=== PATIENT | female | born 1990 | race Caucasian/White ===

== ENCOUNTER 2016-11-14 12:22 | Observation (INO) | payer OTHER ==
[2016-11-14] VITALS (17 sets, daily range): BP systolic 90–145; BP diastolic 45–96; PULSE 61–90; RESP 14–25; O2SAT 95–100
[~2016-11-14] VITALS: Ht 162.6 cm; Wt 82.0 kg
[~2016-11-14 12:22] MED LIST: DOCU-41 PO; IBUP800T28 PO; OXYC1TAB24 PO; PREN1TAB25 PO
--- NOTE | 2016-11-14 13:14 | ED.REPORT ---
HPI-Abd Pain F Under 40 Date of Service Nov 14, 2016 ED Provider: Dr. Hernández A 26 year old female with a history of bladder infections and two C-sections presents to the ED complaining of severe diffuse abdominal pain onset today at 0300. She experienced mild abdominal pain yesterday and was awoken by severe abdominal pain today, subsequently experiencing vomiting, diarrhea, and diaphoresis. She reports taking Ibuprofen at onset and was then able to sleep. She awoke this morning with the pain and took Midol with no relief. Pain has increased since onset. Associated symptoms include lower back pain. She denies any dysuria, fever, or and reports that the pain does not feel like past bladder infection. The patient does not smoke, is an occasional social drinker, and denies taking any prescription medications. She reports practicing safe intercourse with partner. She does not have a regular doctor. Nursing Notes Stated Complaint: ABDOMINAL PAIN Chief Complaint: Female Abdominal Pain Nursing Notes Reviewed: Yes Allergies: Coded Allergies: No Known Allergies (Verified Allergy, Unknown, 11/14/16) No Active Prescriptions or Reported Meds General Time Seen by MD: 13:13 Chief Complaint Abdominal pain Hx Obtained From: Patient Arrived By: Walk-in Sudden in Onset?: No Onset Occurred: 9 - 12 hours ago Symptom Duration: Since onset Location: : Diffuse Recent Healthcare: No recent doctor visit Similar Sx Previous: No Past Medical History Past Medical History bladder infection. neurologic disorders. No PCP. Reports: Asthma (Exercised induced childhood asthma.) Past Surgical History Reports: (two C-sections in past.) Smoking History Former Smoker Social History Alcohol Use: "Social" (occasional) Ambulatory Status Independent Review of Systems Review of Systems Note: Lower back pain. Constitutional: Denies: Fever GI: Reports: Abdominal pain, Diarrhea, Vomiting Female: Denies: Dysuria, Complete sys rev & neg: except as marked. Skin: Reports Diaphoresis Physical Exam Initial Vital Signs Vital Signs (First) Date Time Temp Pulse Resp B/P Pulse Ox O2 Delivery O2 Flow Rate FiO2 11/14/16 12:35 36.2 83 18 145/96 100 Initial VS: Reviewed General/Constitutional: Awake, Alert Respiratory / Chest: Atraumatic, Breath sounds NL, Breath sounds = bilat, No respiratory distress, No rales, No rhonchi, No wheezing Cardiovascular: Heart rate NL, Regular rhythm, Heart sounds NL, No gallop, No murmurs, No rubs Abdomen: Atraumatic Tenderness/Guarding/Rebound: Positive: Tender LLQ... (Moderate), Tender RLQ... (Moderate) Lower abdominal tenderness, right and left equal. Guarding present. No upper abdominal tenderness. Back: Atraumatic, Full range of motion (with guarding, right and left equal), No CVA tenderness Head / Eyes: Atraumatic, Normocephalic, PERRL, EOMI ENT: Atraumatic, Airway patent, Mucous membranes moist Skin: Atraumatic, Color NL, No rash, Warm, Dry Neurologic: Oriented X3, Speech NL, No motor deficits, No sensory deficits Neck: Atraumatic, Full range of motion Upper Extremity / MS: Atraumatic, Full range of motion Lower Extremity / Pelvis / MS: Atraumatic, Full range of motion Psychiatric: Affect NL, Mood NL Interpretation & Diagnostics Lab Results Interpretation Result Diagram: 11/14/16 1210 11/14/16 1210 Test 11/14/16 11:51 11/14/16 12:10 Urine Color Yellow (YELLOW) Urine Appearance Hazy (CLEAR,HAZY) Urine pH 6.5 (5.0-8.0) Urine Specific [place] 1.020 (1.003-1.035) Urine Protein Negativemg/dL (NEG,TRACE) Urine Glucose (UA) Negativemg/dL (NEGATIVE) Urine Ketones Negativemg/dL (NEGATIVE) Urine Occult Blood Trace (NEGATIVE) Urine Nitrite Positive (NEGATIVE) Urine Bilirubin Negative (NEGATIVE) Urine Urobilinogen Normalmg/dL (NORMAL) Urine Leukocyte Esterase Negative (NEGATIVE) Urine RBC 3-10/hpf (0-2) Urine WBC 0-5/hpf (0-5) Urine Epithelial Cells Occasional/hpf (NONE-MOD) Urine Crystals None seen (NONE SEEN) Urine Bacteria Many/hpf (NONE-FEW) Urine Hyaline Casts None/lpf (NONE) Urine Granular Casts None seen (NONE SEEN) Urine Waxy Casts None seen (NONE SEEN) Urine Red Blood Cell Casts None seen (NONE SEEN) Urine White Blood Cell Casts None seen (NONE SEEN) Urine Mucus Present (None Seen) Urine Trichomonas None seen (NONE SEEN) Urine Yeast None (NONE SEEN) Urinalysis Comment None Urine Culture Reflexed Indicated Hold Urine Received (Received) White Blood Count 19.3th/mm3 (3.8-10.1) Red Blood Count 4.88mil/mm3 (3.90-5.20) Hemoglobin 13.3g/dL (12.0-15.6) Hematocrit 39.8% (35.0-46.0) Mean Corpuscular Volume 81.6fL (81-100) Mean Corpuscular Hemoglobin 27.3pg (27.0-35.0) Mean Corpuscular Hemoglobin Concent 33.4% (32.0-37.0) Red Cell Distribution Width 14.1% (12.3-15.4) Platelet Count 223bil/L (150-400) Neutrophils (%) (Auto) 82.1% (40-74) Lymphocytes (%) (Auto) 11.3% (14-46) Monocytes (%) (Auto) 5.9% (4-12) Eosinophils (%) (Auto) 0.2% (0-5) Basophils (%) (Auto) 0.2% (0-3) Sodium Level 138mEq/L (134-144) Potassium Level 4.0mEq/L (3.5-5.2) Chloride Level 103mEq/L (97-108) Carbon Dioxide Level 23mmol/L (18-29) Blood Urea Nitrogen 13mg/dL (6-20) Creatinine 0.70mg/dL (0.57-1.00) Estimat Glomerular Filtration Rate 146mL/min (>59) Glucose Level 109mg/dL (60-99) Calcium Level 9.4mg/dL (8.5-10.1) Magnesium Level 1.7mg/dL (1.6-2.6) Total Bilirubin 1.0mg/dL (0.0-1.2) Aspartate Amino Transf (AST/SGOT) 15U/L (0-50) Alanine Aminotransferase (ALT/SGPT) 14U/L (0-32) Alkaline Phosphatase 81U/L (25-150) Total Protein 7.4g/dL (6.4-8.4) Albumin 4.2g/dL (3.4-5.0) Lipase 15U/L (13-60) Hold Cool Top Tube Received (Received) General Lab Results Interp 1: Labs reviewed CT Abd / Pelvis Interpretation IMPRESSION: 1. Acute appendicitis. Small amount of associated free fluid in the pelvis, consistent with physiologic free fluid versus appendiceal rupture. Findings discussed with Dr. Hernández on 11.14.16 at 1518 hrs. 2. Bilateral L5-S1 pars interarticularis defects, associated with anterolisthesis of L5 on S1, and bilateral L5-S1 neuroforaminal stenoses. Dictated by: Reggie Alfaro M.D. on 11/14/2016 at 15:18 Approved by: Reggie Alfaro M.D. on 11/14/2016 at 15:21 Study type: Abdominal CT IV contrast Interpretation / Wet Read by: Interpret - Radiologist Re-Eval/Medical Decision Source of Hx: Old records Re-Evaluation/Progress : Time of Eval: 15:23 Re-Evaluation/Progress Note: Rechecked patient, explained diagnosis of appendicitis and treatment plan. Patient understands and agrees with the plan. All questions addressed. Consultation : Referral / Consult Name: Atif Pedro MD Consulted With: Surgeon Call Returned at: 15:30 Cookie Breaker: Will see patient, Agrees with eval, Agrees with plan, Accepts admit Counseled Regarding: Diagnosis, Lab results, Need for admission Discharge & Departure Primary Impression: Acute appendicitis Acute appendicitis type: with localized peritonitis Qualified Code: K35.3 - Acute appendicitis with localized peritonitis Disposition: ADMITTED TO HOSPITAL Discharge Condition All VS Reviewed: Yes Referrals: NOPCP (PCP) Scribe Attestation Portions of this note were transcribed by Tristian Wright and Gilda Charles. I, , personally performed the history, physical exam, and medical decision-making: I reviewed and confirmed the accuracy for the information in the transcribed note. Signed by: Tristian Wright and akil Eisenberg, 11/14/16 1740 Bernabe Hernández MD Nov 14, 2016 13:14 Tristian Wright Nov 14, 2016 13:21 Gilda Charles Nov 14, 2016 13:52 Gilda Charles Nov 14, 2016 13:52
[2016-11-14 13:20] LABS: BASOPHILS % (AUTO) 0.2 % (0-3); EOSINOPHILS % (AUTO) 0.2 % (0-5); MONOCYTES % (AUTO) 5.9 % (4-12); Mean Corpuscular Hemoglobin 27.3 pg (27.0-35.0); Mean Corpuscular Volume 81.6 fL (81-100); NEUTROPHILS % (AUTO) 82.1 % (40-74); Platelet Count 223 bil/L (150-400)
[2016-11-14] MEDS ORDERED: 0.9% Sodium Chloride 1,000 ML IV ONE (13:21)
[2016-11-14] MEDS ORDERED: Acetaminophen IV 1,000 MG in IV Premix 1 EACH IV ONE (13:25)
[2016-11-14] MEDS ORDERED: Ondansetron 2 mg/mL 2 mL Inj IVPUSH PRN ×3 (13:25→18:50)
[2016-11-14] MEDS ORDERED: MetoCLOpramide 5 mg/mL 2 mL Inj IVPUSH ONE (13:25)
[2016-11-14 13:39] LABS: Magnesium 1.7 mg/dL (1.6-2.6)
[2016-11-14 14:07] LABS: APPEARANCE,URINE HAZY (CLEAR,HAZY); COLOR,URINE YELLOW (YELLOW); OCCULT BLOOD,URINE TRACE (NEGATIVE); PH,URINE 6.5 (5.0-8.0)
[2016-11-14 14:08] LABS: UROBILINOGEN,URINE NORMAL (NORMAL)
[2016-11-14] MEDS: HYDROmorphone 1 mg/mL Inj IVPUSH PRN ×2 (14:23→16:17)
--- NOTE | 2016-11-14 15:22 | DRSVH ---
PROCEDURE: CT ABDOMEN AND PELVIS WITH CONTRAST ([id number]) INDICATIONS: Lower abdominal Pain TECHNIQUE: After the administration of intravenous contrast, 5 mm thick sections acquired from the diaphragm to the symphysis. 5 mm coronal and sagittal reformats were acquired. For radiation dose reduction, the following was used: automated exposure control, adjustment of mA and/or kV according to patient siz e. COMPARISON: None. FINDINGS: Image quality: Excellent. ABDOMEN: Lung bases: Lung bases are clear. Heart size is normal. Solid organs: Liver and spleen are normal in size and enhancement. Gallbladder is within normal worthy its. Biliary system is non dilated. Pancreas enhances normally. No adrenal nodules. Kidneys demon strate normal size and enhancement, without hydronephrosis. Peritoneum and bowel: Bowel loops demonstrate normal wall thickness and caliber. No free air. Small amount of free fluid in the pelvis. The appendix is distended and fluid-filled and demonstrates mode rate stranding fat stranding. Nodes and vessels: No retroperitoneal or mesenteric adenopathy by size criteria. Aorta and inferior vena cava are normal in size. Miscellaneous: No ventral hernias. PELVIS: Genitourinary: Bladder wall thickness is normal. Miscellaneous: No inguinal hernias or adenopathy. Bones: No suspicious bony lesions. Bilateral L5-S1 pars interarticularis defects, associated with gr radha 1 anterolisthesis of L5 on S1, and probable severe bilateral L5-S1 foraminal stenosis. No vertebr al body compression fractures. IMPRESSION: 1. Acute appendicitis. Small amount of associated free fluid in the pelvis, consistent with physiolog ic free fluid versus appendiceal rupture. Findings discussed with Dr. Hernández on 11.14.16 at 1518 h rs. 2. Bilateral L5-S1 pars interarticularis defects, associated with anterolisthesis of L5 on S1, and bi lateral L5-S1 neuroforaminal stenoses. Dictated by: Reggie Alfaro M.D. on 11/14/2016 at 15:18 Approved by: Reggie Alfaro M.D. on 11/14/2016 at 15:21
[2016-11-14] MEDS ORDERED: fentaNYL-PF 50 mCg/mL 2 mL Inj ONE (15:54)
[2016-11-14] MEDS ORDERED: Propofol 10,000 mCg/mL 20 mL Inj ONE (15:54)
[2016-11-14] MEDS ORDERED: Ondansetron 2 mg/mL 2 mL Inj ONE (15:54)
[2016-11-14] MEDS ORDERED: Rocuronium 10 mg/mL 5 mL Inj ONE (15:54)
[2016-11-14] MEDS ORDERED: Dexamethasone 4 mg/mL Inj ONE (15:54)
[2016-11-14] MEDS ORDERED: MetoCLOpramide 5 mg/mL 2 mL Inj ONE (15:54)
[2016-11-14] MEDS ORDERED: Lidocaine PF 1% 30 mL Inj ONE (15:54)
[2016-11-14] MEDS ORDERED: Succinylcholine Chloride 20 mg/mL 5 mL Inj ONE (15:54)
[2016-11-14] MEDS ORDERED: Lactated Ringer's 1,000 ML IV ONE (17:33)
[2016-11-14] MEDS: Ampicillin-Sulbactam Inj 3,000 MG in 0.9% Sodium Chloride 100 ML IV ONE ×2 (17:34→17:59)
--- NOTE | 2016-11-14 17:34 | PCM.HPANE ---
Patient Data Date of Service: Nov 14, 2016 Surgeon Admitting Provider:Atif Pedro MD Attending Provider:Atif Pedro MD Primary Care Physician:Nopcp Other Provider: Reason for Visit APPY Ht/WT & BMI Height (Feet): 5 Height (Inches): 4 Weight (Kilograms): 81.82 Body Mass Index Allergies Coded Allergies: No Known Allergies (Verified Allergy, Unknown, 11/14/16) Diabetes History Hx Diabetes?: No Medications Discontinued Reported Medications Vit#96/Ferrous Fum/FA ( Tablet)1 Each Tablet1 Each PO DAILY 05/17/16 Discontinued Scripts Docusate Sodium (Colace)100 Mg [id number] Mg PO BID PRN For Constipation #30 CAPSULE Ref 1 Prov:Silvio Victor MD 05/19/16 oxyCODONE-Acetaminophen 5-325 mg 1 Each Tablet1-2 Tab PO Q4H PRN For Pain #30 TABLET Prov:Silvio Victor MD 05/19/16 Ibuprofen 800 Mg [id number] Mg PO Q6H PRN For Pain #30 TABLET Ref 1 Prov:Silvio Victor MD 05/19/16 History Hx of Heart Problems?: No Cardiovascular History: Denies:: Chest Pain Congestive Heart Failure Hypertension Other Cardiac History: no SOB Hx of Respiratory Problem?: Yes Respiratory History: Positive for:: Asthma (exercise induced as child, no current albuterol use) Denies:: Tuberculosis Other Resp Pertinent History: former smoker Hx Neurologic Problems?: No Neurological History: Denies:: CVA Seizures Hx of GI Problems?: No Other GI Pertinent History: acute appendicitis with localized peritonitis Hx of Problems?: No HX of Peritoneal Dialysis: No Female Hx: Denies:: Currently ([facility] [place] - negativer 11/14/16) Skin History: Denies:: History Skin Disorders? Pressure Ulcers Hx Musculoskeletal Problems?: Yes Other History/Comment anterolisthesis of L5 on S1 with bilateral foraminal stenoses Hx of Psycho/Social Problems?: No Hx Surgeries?: Yes (TONSILS, x2) Hx Any Other Health Problems?: No History Blood Transfusions: Positive for:: Accept Blood Products? (Yes) Denies:: Blood Transfusions Hx Diabetes: No Other Pertinent History: 6 months post-, not Hx Alcohol Use: Yes (VERY RARE; LAST TIME WAS MONDAY (FIRST TIME IN 2 YEARS)) Hx Substance Use: No Smoking Status: Former Smoker Have You Smoked inLast 12 mo: No Stop/Bang Treated for Sleep Apnea?: No Do You Have a CPAP Machine?: No S-Snoring: Do You Snore Loudly: No T-Tired: feel tired, fatigued: Yes O-Obsered: Observed not breath: No P-Blood Pressure: treated: No B- Body Mass Index > 35 kg/m2: No A- Age over 50: No N- Neck Large Circumference: No G- Gender Male: No ALYSIA Risk Assessment: Low Risk, <3 Yes Risk Assessment Category Category 1A: Patient has history of documented sleep apnea, and HAS NOT received any narcotic, sedative or anesthesia administration during this stay. Category 1B: Patient has history of documented sleep apnea, and HAS received any narcotic , sedative or anesthesia administration during this stay Category 2: Patient has SUSPECTED Obstructive Sleep Apnea, and HAS received any narcotic , sedative or anesthesia administration during this stay. Category 3: Patient has SUSPECTED Obstructive Sleep Apnea and HAS NOT received narcotic, sedative or anesthesia administration during this stay. Category 4: Outpatient in Procedural Areas with known sleep apnea or who screen positive for High Risk via the STOP/BANG questionnaire. Exam Exam Vital Signs Vital Signs Date Time Temp Pulse Resp B/P Pulse Ox O2 Delivery O2 Flow Rate FiO2 11/14/16 16:55 36.5 89 15 108/65 99 Room Air 11/14/16 15:58 36.5 89 15 108/65 99 Room Air 11/14/16 12:35 36.2 83 18 145/96 100 General Appearance: Alert, Oriented X3, Cooperative, No Acute Distress HEENT/AIRWAY: MP 2, Neck Movement (FROM), Mouth Opening (<3), Other (R nostril nosering - not removeable per patient - accepts risk) Lungs: Normal Air Movement Heart: Exam Unremarkable, Regular Rate/Rhythm, Normal S2, No Murmurs/Rubs/ Gallops Meds/Labs/Diagnostics Admission Meds Current Medications Sodium Chloride (Normal Saline) 1,000 ml @ 0 mls/hr Q0M ONCE IV Last administered on 11/14/16t 14:06; Start 11/14/16 at 13:21; Stop 11/14/16 at 13:23 ; Status DC Metoclopramide HCl 10 mg 10 mg ONCE ONCE IVPUSH Last administered on 14:20; Start 11/14/16 at 13:25; Stop 11/14/16 at 13:26; Status DC Acetaminophen/ Premix (Tylenol IV/IV Premix) 100 ml @ 400 mls/hr ONCE ONCE IV Last administered on 11/14/16 14:07; Start 11/14/16 at 13:25; Stop 11/14/16 at 13:39; Status DC Labs Test 11/14/16 11:51 11/14/16 12:10 Urine Color Yellow (YELLOW) Urine Appearance Hazy (CLEAR,HAZY) Urine pH 6.5 (5.0-8.0) Urine Specific [place] 1.020 (1.003-1.035) Urine Protein Negativemg/dL (NEG,TRACE) Urine Glucose (UA) Negativemg/dL (NEGATIVE) Urine Ketones Negativemg/dL (NEGATIVE) Urine Occult Blood Trace (NEGATIVE) Urine Nitrite Positive (NEGATIVE) Urine Bilirubin Negative (NEGATIVE) Urine Urobilinogen Normalmg/dL (NORMAL) Urine Leukocyte Esterase Negative (NEGATIVE) Urine RBC 3-10/hpf (0-2) Urine WBC 0-5/hpf (0-5) Urine Epithelial Cells Occasional/hpf (NONE-MOD) Urine Crystals None seen (NONE SEEN) Urine Bacteria Many/hpf (NONE-FEW) Urine Hyaline Casts None/lpf (NONE) Urine Granular Casts None seen (NONE SEEN) Urine Waxy Casts None seen (NONE SEEN) Urine Red Blood Cell Casts None seen (NONE SEEN) Urine White Blood Cell Casts None seen (NONE SEEN) Urine Mucus Present (None Seen) Urine Trichomonas None seen (NONE SEEN) Urine Yeast None (NONE SEEN) Urinalysis Comment None Urine Culture Reflexed Indicated Hold Urine Received (Received) White Blood Count 19.3th/mm3 (3.8-10.1) Red Blood Count 4.88mil/mm3 (3.90-5.20) Hemoglobin 13.3g/dL (12.0-15.6) Hematocrit 39.8% (35.0-46.0) Mean Corpuscular Volume 81.6fL (81-100) Mean Corpuscular Hemoglobin 27.3pg (27.0-35.0) Mean Corpuscular Hemoglobin Concent 33.4% (32.0-37.0) Red Cell Distribution Width 14.1% (12.3-15.4) Platelet Count 223bil/L (150-400) Neutrophils (%) (Auto) 82.1% (40-74) Lymphocytes (%) (Auto) 11.3% (14-46) Monocytes (%) (Auto) 5.9% (4-12) Eosinophils (%) (Auto) 0.2% (0-5) Basophils (%) (Auto) 0.2% (0-3) Sodium Level 138mEq/L (134-144) Potassium Level 4.0mEq/L (3.5-5.2) Chloride Level 103mEq/L (97-108) Carbon Dioxide Level 23mmol/L (18-29) Blood Urea Nitrogen 13mg/dL (6-20) Creatinine 0.70mg/dL (0.57-1.00) Estimat Glomerular Filtration Rate 146mL/min (>59) Glucose Level 109mg/dL (60-99) Calcium Level 9.4mg/dL (8.5-10.1) Magnesium Level 1.7mg/dL (1.6-2.6) Total Bilirubin 1.0mg/dL (0.0-1.2) Aspartate Amino Transf (AST/SGOT) 15U/L (0-50) Alanine Aminotransferase (ALT/SGPT) 14U/L (0-32) Alkaline Phosphatase 81U/L (25-150) Total Protein 7.4g/dL (6.4-8.4) Albumin 4.2g/dL (3.4-5.0) Lipase 15U/L (13-60) Hold Cool Top Tube Received (Received) Plan Impression Patient chart reviewed, patient interviewed and anesthestic plan with risks, benefits, and alternatives discussed, and informed consent obtained. ASA Physical Status: ASA2 Plus Emergency Anesthetic Plan: GA Bene/Risks/Altern/Consents: Yes HP Complete Prior to Induction: Yes Other Instructed to pump & discard breastmilk x24hrs immediately post-op if decide to breastfeed Avinash Smith MD Nov 14, 2016 17:33
[2016-11-14] MEDS ORDERED: Bupivacaine 0.5%/EPI 50 mL Inj INFILTRATE ONE (18:17)
[2016-11-14] MEDS ORDERED: Lactated Ringer's 500 ML IV PRN (18:23)
[2016-11-14] MEDS ORDERED: Lactated Ringer's 1,000 ML IV SCH (18:23)
[2016-11-14] MEDS ORDERED: EPHEDrine Sulfate 50 mg/mL Inj IVPUSH PRN (18:25)
[2016-11-14] MEDS ORDERED: HYDROmorphone 1 mg/mL Inj IVPUSH PRN (18:25)
[2016-11-14] MEDS ORDERED: Phenylephrine 10,000 mCg/mL Inj IVPUSH PRN (18:25)
[2016-11-14] MEDS ORDERED: MetoCLOpramide 5 mg/mL 2 mL Inj IVPUSH PRN (18:25)
[2016-11-14] MEDS ORDERED: Dexamethasone 4 mg/mL Inj IVPUSH PRN (18:25)
[2016-11-14] MEDS ORDERED: HYDROmorphone 0.5 mg/0.5 mL iSecure Syringe IV PRN (18:50)
[2016-11-14] MEDS ORDERED: Acetaminophen IV 1,000 MG in IV Premix 1 EACH IV PRN (18:50)
[2016-11-14] MEDS ORDERED: diphenhydrAMINE 25 mg Capsule PO PRN (18:50)
[2016-11-14] MEDS: fentaNYL-PF 50 mCg/mL 2 mL Inj IVPUSH PRN ×4 (19:05→19:30)
--- NOTE | 2016-11-14 20:30 | NUR ---
Arrive to [facility] rm 1020 at 1999. Pt accompanied by family, significant other and child. No SOB or chest pain, no nausea at this time, diet advance as tolerated beginning with clear liquids. Sister will arrive later and be rooming in. Pt on IVF NS TKO and unasyn abx to be given this shift. Care continues
[2016-11-14] MEDS: Ampicillin-Sulbactam Inj 3,000 MG in 0.9% Sodium Chloride 100 ML IV SCH (23:51)
--- NOTE | 2016-11-15 00:22 | HP ---
[address] [address] HISTORY AND PHYSICAL PATIENT: MARIO ALBERTO COOPER : 1990 MR#: [id number] ADMIT: 11/14/2016 JOB ID: [id number] CHIEF COMPLAINT AND IDENTIFICATION: A 26-year-old woman with probable appendicitis. HISTORY OF PRESENT ILLNESS: The patient presented to the emergency department with 1-2 days of abdominal pain, much worse today which woke her up with some shaking chills. She describes pain with the car ride into the hospital. She is having her period. There is associated nausea. No vomiting. PAST MEDICAL HISTORY: section x2. MEDICATIONS: None. ALLERGIES: None. SOCIAL HISTORY: Negative tobacco. Negative daily alcohol. She has a 4-year-old and a 6-month-old, lives with her boyfriend/fiance. She works as a clerical production worker. FAMILY HISTORY: Noncontributory. REVIEW OF SYSTEMS: Negative except for exercise-induced childhood asthma. PHYSICAL EXAMINATION: BMI is 31. Vital signs recorded in the chart. She appears uncomfortable, but is nontoxic. Sclerae clear. Lungs are clear. Heart sounds are regular. Breasts are not examined. She has marked right lower quadrant tenderness to palpation and percussion. Extremities are without edema. Rectal and pelvic is not repeated. LABORATORIES: White count is 19.3. All other labs are normal. Lipase is 15. IMAGING: She had a CT scan of the abdomen that is consistent with appendicitis. I have reviewed the films, as well as the report. IMPRESSION AND PLAN: Probable appendicitis. I have recommended a laparoscopic appendectomy. We will proceed tonight.
[2016-11-15 01:28] VITALS: BP 104/65; PULSE 83; RESP 18; O2SAT 99
--- NOTE | 2016-11-15 01:56 | OP ---
[address] [address] OPERATIVE REPORT PATIENT: MARIO ALBERTO COOPER : 1990 MR#: [id number] ADMIT: 11/14/2016 JOB ID: [id number] DATE OF SURGERY: 11/14/2016 PREOPERATIVE DIAGNOSIS(ES): Appendicitis. POSTOPERATIVE DIAGNOSIS(ES): Appendicitis. PROCEDURE: Laparoscopic appendectomy. SURGEON: Atif Harrington MD. TILESETTER: BROCK Elam. INDICATIONS: A 26-year-old female with signs and symptoms consistent with appendicitis. FINDINGS: Acute nonperforated appendicitis. PROCEDURE: Patient was brought to the operating room. General anesthetic was administered. SCOAP protocol was followed. Surgical time-out was performed. The abdomen was prepped and draped in sterile fashion. She received perioperative antibiotics. We obtained access with a Veress needle. We placed an optical trocar, followed by two additional ports. Patient's uterus still remains somewhat enlarged from her most recent ; therefore, I placed a stapler in the left upper quadrant/midepigastrium. The appendix was visualized. It was clearly inflamed with acute suppuration, but no evidence of perforation. We mobilized the cecum and the base of the appendix and made a window. I divided the appendix with the stapler. We then used a combination of blunt dissection and cautery to dissect the appendix and go through the mesoappendix without injury to any of the other surrounding structures. Hemostasis was good. The appendix was clearly inflamed and removed in a plastic bag to avoid wound contamination. We now checked the staple line and checked for hemostasis. We irrigated out appropriately, suctioned out all of our irrigant and then let our CO2 out and removed our ports. The 12 mm port was closed at the fascial level, followed by skin closure with absorbable suture. The patient tolerated the procedure well.
[2016-11-15 05:39] LABS: BASOPHILS % (AUTO) 0 % (0-3); EOSINOPHILS % (AUTO) 0 % (0-5); MONOCYTES % (AUTO) 1.5 % (4-12); Mean Corpuscular Hemoglobin 26.6 pg (27.0-35.0); Mean Corpuscular Volume 82.7 fL (81-100); Platelet Count 206 bil/L (150-400)
[2016-11-15] MEDS: Ampicillin-Sulbactam Inj 3,000 MG in 0.9% Sodium Chloride 100 ML IV SCH (05:56)
[2016-11-15 06:12] VITALS: BP 97/63; PULSE 81; RESP 16; O2SAT 96
--- NOTE | 2016-11-15 07:20 | PCM.DISURG ---
Surgical Discharge Instruction Date of Service Nov 15, 2016 Dates of Hospitalization Date of Hospital Admission Nov 14, 2016 at 15:53 Providers Admitting Physician: Atif Pedro MD Primary Care Physician: Nopadan Attending Physician: Atif Pedro MD Discharge Diagnosis Discharge Diagnosis appendicitis Post Operative diagnosis laparoscopic appendectomy Diet Discharge Diet: No restrictions Activity Discharge Activity-General: No restrictions Dressing and Incisional Care Dressing Care: Allow Steri Stripes to fall off, Remove outer dressing after 24 hrs Hygiene: May shower Follow Up Plan Follow Up Plan follow up in 1 week with [facility] Call your provider for: Fever, Chills, Wound redness Atif Pedro MD Nov 15, 2016 07:20
[2016-11-15] MEDS ORDERED: OXYC5TAB72 PO (07:21)
[2016-11-15] MEDS ORDERED: Influenza (Adult) Vaccine 0.5 mL Syringe IM ONE (08:30)
--- NOTE | 2016-11-15 09:35 | PROG NOTE ---
[address] [address] PROGRESS NOTE PATIENT: MARIO ALBERTO COOPER : 1990 MR#: [id number] ADMIT: 11/14/2016 JOB ID: [id number] DATE: 11/15/2016 SUBJECTIVE: Postop day one laparoscopic appendectomy. She feels well, is tolerating liquids. She is afebrile, vital signs are stable. Abdominal exam is benign. Expected incisional tenderness. Her white count was quite high at 19.3, and is down to 17.6 today. IMPRESSION AND PLAN: Stable status post laparoscopic appendectomy for nonperforated appendicitis. We will continue her antibiotics for just under 24 hours, anticipate discharge later today on no further antibiotics but with pain pills.
--- NOTE | 2016-11-15 09:53 | PCM.ANEP2 ---
Post Anesthesia Evaluation ASA/CMS Post Anesthesia VS in Patient's Normal Range?: Yes Resp Stable; Airway Patent?: Yes CV Function & Hydration Stable: Yes Mental Status Recovered?: Yes Pain control Satisfactory?: Yes N/V Control Satisfactory?: Yes Avinash Smith MD Nov 15, 2016 09:53
--- NOTE | 2016-11-15 09:53 | PCM.ANEP1 ---
Post Anesthesia Phase 1 PACU Phase 1 Assessment Date of Service: Nov 14, 2016 Vital Signs Vital Signs Date Time Temp Pulse Resp B/P Pulse Ox O2 Delivery O2 Flow Rate FiO2 11/15/16 06:12 36.4 81 16 97/63 96 Room Air Anesthetic Administered: GA Level of Alertness: Awake, talking MON's with Equal Strength: Yes Pain: No Pain Scale Score: 0 Nausea or Vomiting: No Oxygen Delivery: Simple Mask Lungs: Normal Air Movement Avinash Smith MD Nov 15, 2016 09:52
--- NOTE | 2016-11-15 10:35 | NUR ---
Superintendent Maintenance- Initial Assessment Data: Pt is a 26 year old female admitted on 11/14/16 for acute appendicitis per H&P. Pt's insurance is [employer]. Pt has been unable to get appointment with Ricky valadez PCP, pt could not recall name. Social Work met with pt at bedside to discuss discharge plan, SW role explained. Pt resides in [place] with her fiancee and son where she remains independent with her ADLs. Pt has no HH or SNF history, uses no DME, and drives. SW discussed DPOA with pt and left paperwork. Pt to discharge home with sera to transport via POV. No anticipated discharge needs. SW continues to follow. Assessment: Pt who is independent at base. Plan: Pt to discharge home today with joee to transport via POV. No anticipated discharge needs. SW will continue to follow if needs arise. ADWOA Sanders
--- NOTE | 2016-11-15 10:58 | NUR ---
Social Work- Discharge Data: EMR reviewed. Pt is on day 1 of hospitalization for appy per H&P. Pt is medically stable for discharge today. Pt will discharge home with fiancee to transport via POV. No discharge needs. Assessment: Pt who is independent at base. Plan: Pt to discharge today. Pt to discharge home with fiancee to transport via POV. No discharge needs. ADWOA Sanders
--- NOTE | 2016-11-15 13:17 | NUR ---
Discharge Pt discharged to home with family via private vehicle at 1305 hrs. PIV removed intact. Pain controlled. VSS. All personal possessions sent with pt. Discharge and follow up instructions given to patient and she expressed understanding.
--- NOTE | 2016-11-15 23:56 | DIS ---
[address] [address] DISCHARGE SUMMARY PATIENT: MARIO ALBERTO COOPER : 1990 MR#: [id number] ADMIT: 11/14/2016 JOB ID: [id number] DIS: 11/15/2016 DISCHARGE DIAGNOSIS: Appendicitis. OPERATIONS/PROCEDURES: Laparoscopic appendectomy. HOSPITAL COURSE: A 26-year-old female with signs and symptoms consistent with appendicitis. She underwent laparoscopic appendectomy for perforated appendicitis and will be discharged on postop day number one with p.o. Percocet. She is afebrile. Her vital signs are stable and her incisions are healing. She will follow up in one week with the [facility] for wound check and pathology review.
--- NOTE | 2016-11-17 10:50 | PATH ---
SURGICAL PATHOLOGY Attending Physician:Atif Pedro MD CASE STATUS: Signed Out PATIENT NAME: MARIO ALBERTO COOPER PID: [id number] : 1990 DATE COLLECTED:11/14/2016 00:00 SPECIMEN: Appendix CLINICAL HISTORY: 1). APPENDIX FINAL DIAGNOSIS: 1.APPENDIX: VERMIFORM APPENDIX WITH ACUTE APPENDICITIS. NO EVIDENCE OF MALIGNANCY. ICD10 CODE K35.80 GROSS DESCRIPTION: The specimen is received in formalin, labeled with the patient's name, sublabeled as appendix, and consists of an intact appendix (length-6.6 cm, diameter-1.1 cm) with attached mesoappendix (up to 1.2 cm in depth). The resection margin is received stapled. The serosa is rausch-garcia smooth and shiny and partially covered in rausch flaky friable exudate. The lumen contains brown fluid and solid soft material. The wall is up to 0.3 cm thick. An apparent rupture site is identified 0.5 cm from the tip. No nodules, masses or lesions are identified. Ink code: black-proximal. Section code: (A) appendix, liability claims representative; (B) tip, bivalved, entirely submitted. 11/16/16 MICRO DESCRIPTION: See diagnosis. ICD-9 CODES: CPT CODES: 1: 52206 Electronically Signed Out Maritza Urrutia MD [facility] [address], [place] [address] Technical component performed at [facility], [facility] [address], [address]
== END 2016-11-15 13:10 | disposition home or self-care (01) ==
LOC: SED 12:22 → OSC 15:53
PROVIDERS: ADMIT Surgery; ATTEND Surgery
PROC: 0DTJ4ZZ Resection of Appendix, Percutaneous Endoscopic Approach (ICD-10-PCS; principal; 2016-11-14 17:30)
DX: K35.2 Acute appendicitis with generalized peritonitis (principal); Z23 Encounter for immunization
CPT/HCPCS: 36415; 44970; 74177; 80053; 81000; 81025; 83690; 83735; 85025; 87077; 87086; 87088; 87186; 88304; 94640; 96361; 96374; 96375; 99285; G0378; J0131; J0295; J0330; J1100; J1170; J2250; J2405; J2765; J3010; J7030; J7120; Q2039; Q9967